=== PATIENT | male | born 1950 | race Caucasian/White ===

== ENCOUNTER 2018-05-04 10:14 | Outpatient (CLI) | payer MEDICARE, BC ==
[2012-11-28 13:40] VITALS: O2SAT 97
[2018-05-04 11:49] LABS: BASOPHILS % (AUTO) 1 % (0-3); EOSINOPHILS % (AUTO) 3 % (0-9); HEMATOCRIT 42 % (39-53); HEMOGLOBIN 14.2 gm/dl (13.5-17.7); LYMPHOCYTES % (AUTO) 39.1 % (10-50); MEAN CORPUSCULAR HGB CONC 34.1 gm/dl (32.0-36.0); MEAN CORPUSCULAR VOLUME 97 fL (80-100); MONOCYTES % (AUTO) 9.1 % (0-12); NEUTROPHILS % (AUTO) 47.8 % (37-80)
[2018-05-04 12:02] LABS: CREATININE 0.9 mg/dl (0.80-1.30); CRP INFLAMMATORY 0.23 mg/dl (0.00-0.33)
[2018-05-04 13:13] LABS: APPEARANCE,URINE Clear; BILIRUBIN,URINE NEGATIVE (NEGATIVE); COLOR,URINE Yellow; GLUCOSE, URINE (UA) NEGATIVE (NEGATIVE); KETONES,URINE NEGATIVE (NEGATIVE); LEUKOCYTE ESTERASE ,URINE NEGATIVE (NEGATIVE); NITRATE,URINE NEGATIVE (NEGATIVE); OCCULT BLOOD,URINE TRACE INTACT (NEG-TRACE); PH,URINE 5.5; UROBILINOGEN,URINE 0.2 (0.2-1.0 EU)
[2018-05-04 13:29] LABS: BACTERIA NEGATIVE (< 1+); CRYSTALS NEGATIVE (0-3 AVE/HPF); EPITHELIAL CELLS 0-1 (SQUAMOUS); RBC,URINE NEG (0-3AV/HPF); WBC,URINE NEG (0-5AV/HPF)
[2018-05-04 14:00] LABS: SEDIMENTATION RATE 31 mm/hr (0-15)
== END 2018-05-04 10:15 | disposition home or self-care (01) | DRG 556 ==
LOC: CONVCARE 10:14
PROVIDERS: ATTEND Orthopaedic Surgery
DX: M25.551 Pain in right hip (principal); Z96.641 Presence of right artificial hip joint; M54.5 Low back pain; R10.9 Unspecified abdominal pain
CPT/HCPCS: 36415; 73501; 74018; 74177; 81001; 82565; 85025; 85651; Q9967